=== PATIENT | female | born 1940 | race Caucasian/White ===

== ENCOUNTER 2016-10-23 11:21 | Inpatient (IN) ==
--- NOTE | 2016-10-23 12:12 | XRay Report ---
XR chest 1V portable Indication: Abdominal pain Comparison: 10 May 2011 Findings: The heart and mediastinum are normal in size and configuration. The pulmonary vascularity is normal in caliber. Lung volumes are increased with prominent bronchial markings. No lung infiltrates, effusions, pneumothorax or other abnormality is demonstrated. Impression: Chronic lung changes. No acute process or significant change. PROCEDURE INTERPRETED AT [facility] DEPARTMENT OF RADIOLOGY Final Report Signed by: Dr. Brice He
[2016-10-23 12:23] LABS: Basophils % 0.4 % (0.0-0.8); Eosinophils # 0.1 10*3/uL (0.0-0.87); Eosinophils % 0.7 % (0.00-10.9); Hematocrit 41.3 VOL% (35.7-47.0); Hemoglobin 14.2 GM/DL (12.0-16.0); Immature Granulocytes % 0.5 %; Immature Granulocytes Absolute 0.05 #; Lymphocytes # 1.4 10*3/uL (1.4-4.0); Lymphocytes % 14.6 % (21.3-54.2); Mean Corpuscular HGB Conc 34.4 GM/DL (32-36); Mean Corpuscular Hemoglobin 31 PG (27-34); Mean Platelet Volume 10.7 FL (9.6-12.0); Monocytes # 0.5 10*3/uL (0.11-0.8); Monocytes % 4.7 % (1.7-12.7); Neutrophils # 7.6 10*3/uL (1.4-7.4); Neutrophils % 79.1 % (38.7-73.9); Platelet Count 201 T/CUMM (130-400); Red Blood Count 4.54 MC/CUMM (3.8-5.5); Red Cell Distribution Width 12.4 % (9.3-17.3); White Blood Count 9.6 T/CUMM (4-12)
[2016-10-23 12:30] LABS: Apearance,Urine CLEAR (Clear); Bilirubin,Urine Negative (Negative); Blood, Urine Small mg/dL (Negative); Glucose,Urine (UA) Negative (Negative); Ketones,Urine 5 mg/dL (Negative); Mucus,Urine Occasional /LPF (Occasional); Nitrite,Urine Negative (Negative); Protein,Urine Negative; RBC,Urine <1 /HPF (0-4); Squamous Epithelial Cell,Urine Occasional /HPF (0-10); Urine Color Yellow (Yellow); Urine Specific Gravity 1.013 (1.001-1.035); Urine Urobilinogen < 2.0 EU/DL (0.2-1.0); WBC,Urine 1 /HPF (0-6)
--- NOTE | 2016-10-23 12:42 | CT Report ---
CT abdomen pelvis Indication: Abdominal pain Comparison: None available Technique: Axial CT imaging of the abdomen and pelvis is performed without contrast. Findings: Large amount of calcification is seen in the area of the mitral valve. CT abdomen: Spleen has multiple calcified granulomas present. The liver pancreas and adrenal glands are normal in size and density. No evidence of focal lesion is demonstrated in these solid organs. Kidneys are normal in size and density. No evidence of hydronephrosis or nephrolithiasis is seen. Small thickening of the colon with numerous diverticula are present. There is low density submucosa more prominent in the descending and transverse colon. Few subcentimeter lymph nodes are present in the right lower quadrant mesentery. No abnormal stranding is identified. Remaining bowel caliber is normal and no wall thickening or adjacent inflammatory change is seen. No evidence of free fluid or free air is present. Appendix appears normal. CT pelvis: Multiple diverticula are present in the sigmoid colon without evidence of diverticulitis. Bladder appear within normal limits. The pelvic organs show no evidence of abnormality Impression: Colonic wall thickening with low-density submucosa most prevalent in the ascending and transverse colon, could indicate inflammatory colitis. Multiple diverticula are present in the colon without evidence of diverticulitis. No other acute findings. This CT exam was performed using one or more the following dose reduction techniques: Automated exposure control, adjustment of the MA and/or KV according to patient size, or use of iterative reconstruction technique. PROCEDURE INTERPRETED AT [facility] DEPARTMENT OF RADIOLOGY Final Report Signed by: Dr. Brice He
[2016-10-23 12:47] LABS: Albumin 3.3 G/DL (3.4-5.0); Bilirubin,Total 0.6 MG/DL (0.2-1.0); Calcium 8.8 MG/DL (8.5-10.1); Magnesium 2.2 MG/DL (1.8-2.4); Potassium 3.5 MMOL/L (3.5-5.1); Total Protein 7.2 G/DL (6.4-8.3)
--- NOTE | 2016-10-23 13:05 | Emergency Department Note ---
Lakeshia Parrish Gwan, am scribing for, and in the presence of, Filippo De La Cruz MD 11:44. Dorothy Parrish Phillip K, MD, personally performed the services described in this documentation, ascribed by Chilango Asher in my presence, and it is both accurate and complete . Arrival - Arrival Chief Complaint: Weakness Stated Complaint: weakness ED Nursing Triage Note: Brought in per EMS from home with c/o generalized weakness onset last pm. Reports went to sit in wheelchair and slid onto floor, was unable to get up by herself. Denies pain. Denies urinary problems. Mode of Arrival: Stretcher Limitations: No Limitations Source: Patient, Old Records Reviewed, RN Notes Reviewed - History of Present Illness HPI Narrative: Patient is a 76 y/o white female who presents to the ED via EMS with a c/o generalized weakness with an onset last night. Patient stated that she went to sit in her in her wheelchair and slid onto the floor. Due to her weakness, the patient stated that she was unable to get herself up and was on the floor for 4 hours. She denies any urinary sxs or any hx of kidney infection. She confirmed that she lives alone and that she has a medical alert bracelet. No other problems/complaints reported in ED. Onset (ago): hour(s) Consistency: constant Severity: moderate Date of Last Menstrual Period: PM Allergies/Adverse Reactions: Allergies Allergy/AdvReac Type Severity Reaction Status Date / Time No Known Allergies Allergy Verified 10/23/16 11:29 Home Medications: Home Medications Medication Instructions Recorded Confirmed Type Atorvastatin [Lipitor] 40 mg PO DAILY 10/23/16 10/23/16 History Clopidogrel Bisulfate [Clopidogrel] 75 mg PO DAILY 10/23/16 10/23/16 History Insulin Detemir [Levemir FlexPen] 20 units SUBCUT QPM 10/23/16 10/23/16 History Metformin HCl [Metformin HCl ER] 500 mg PO DAILY W/SUPPER 10/23/16 10/23/16 History Valsartan [Valsartan] 160 mg PO DAILY 10/23/16 10/23/16 History glipiZIDE [Glipizide] 10 mg PO DAILY 10/23/16 10/23/16 History hydroCHLOROthiazide 12.5 mg PO DAILY 10/23/16 10/23/16 History [Hydrochlorothiazide] Review of System - Review of System 12 point system: reviewed and no additional remarkable complaints except as stated - Review of System Constitutional: Absent: chills, diaphoresis Eyes: Absent: discharge, pain Head/Ears/Nose/Throat: Absent: earache, epistaxis Respiratory: Absent: cough, wheezing Cardiovascular: Absent: chest pain, palpitations Neurological: Present: as per HPI, weakness. Absent: numbness, confusion Medical,Surgical,& Family Hx - Medical History Cardio: History of: Hypertension Endocrine: History of: Diabetes Mellitus (IDDM) - Social History Smoking Status: Never smoker Frequency of Alcohol Use: None Type of Drug Use: None Exam Vital Signs: Vital Signs Temperature 98.5 F 10/23/16 11:21 Pulse Rate 80 10/23/16 11:21 Respiratory Rate 20 10/23/16 11:21 Blood Pressure 113/68 10/23/16 11:21 O2 Sat by Pulse Oximetry 98 10/23/16 11:21 - General General appearance: alert, in no apparent distress - Head Head exam: Present: atraumatic, normocephalic - Eye Eye exam: Present: normal appearance, PERRL, EOMI - ENT ENT exam: Present: normal oropharynx, mucous membranes moist, TM's normal bilaterally - Neck Neck exam: Present: full ROM, trachea midline. Absent: tenderness - Chest Chest inspection: Present: symmetric chest wall rise. Absent: tenderness - Respiratory Respiratory exam: Present: normal lung sounds bilaterally. Absent: respiratory distress - Cardiovascular Cardiovascular exam: Present: regular rate, normal heart sounds. Absent: murmur - Abdominal Exam Abdominal exam: Present: soft, tenderness (Tenderness to palpation in both lower quadrants) - Extremities Exam Extremities exam: Present: full ROM (Patient is able to move all extremities but appears to be very weak) - Back Exam Back exam: Present: CVA tenderness (R), CVA tenderness (L) - Neurological Exam Neurological exam: Present: alert, oriented X3, CN II-XII intact. Absent: motor sensory deficit - Psychiatric Psychiatric exam: Present: normal affect, normal mood - Skin Skin exam: Present: warm, dry, intact, normal color Results - Labs CBC & BMP: 10/23/16 12:14 10/23/16 12:14 Lab Results: I have reviewed the patients labs Labs: Laboratory Tests 10/23/16 10/23/16 12:14 12:14 WBC 9.6 RBC 4.54 Hgb 14.2 Hct 41.3 Plt Count 201 Neut % (Auto) 79.1 H Lymph % (Auto) 14.6 L Neut # (Auto) 7.6 H Urine pH 5.0 Ur Specific [place] 1.013 Urine Ketones 5 Urine Blood Small Urine Urobilinogen < 2.0 H Urine RBC <1 Urine WBC 1 - Diagnostic Findings Procedure: Chest x-ray: report reviewed by me (Chronic lung changes. No acute process or significant change. ), CT Abdomen and Pelvis: report reviewed by me ( Colonic wall thickening with low-density submucosa most prevalent in the ascending and transverse colon, could indicate inflammatory colitis. Multiple diverticula are present in the colon without evidence of diverticulitis. No other acute findings.) Disposition Clinical Impression: Generalized weakness Case discussed with: patient, patient's family Disposition: Disch To Home/Self Care Condition: Stable Additional Instructions: Continue present medications.
--- NOTE | 2016-10-23 13:23 | Family Practice History&Phys ---
Assessment and Plan (1) Recurrent falls Status: Acute Assessment and plan: 09/23/2016: Patient be admitted to my services. CT brain we order I am going to x-ray her left knee. Physical therapy will be consulted. Current Visit: Yes History of Present Illness Chief complaint: Recurring falls History of present illness: Ms. Muro is a 76 year old female Patient is an 76-year-old white female who fell twice last night and then again this morning. Patient states she was trying to sit in the chair after getting up and going to the restroom in the chair slid causing her to fall to the floor. She does not know exactly why she fell but she does remember the impact and does not recall any palpitations or chest pain prior to her fall. Patient states she is weak in both her lower extremities. She denies any lateralizing weakness, vision or voice changes. She has not had any fever or chills. She apparently has had a little bit of diarrhea as well. She denies any urinary symptoms. Home Medications Medication Instructions Recorded Confirmed Type Atorvastatin [Lipitor] 40 mg PO DAILY 10/23/16 10/23/16 History Clopidogrel Bisulfate [Clopidogrel] 75 mg PO DAILY 10/23/16 10/23/16 History Insulin Detemir [Levemir FlexPen] 20 units SUBCUT QPM 10/23/16 10/23/16 History Metformin HCl [Metformin HCl ER] 500 mg PO DAILY W/SUPPER 10/23/16 10/23/16 History Valsartan [Valsartan] 160 mg PO DAILY 10/23/16 10/23/16 History glipiZIDE [Glipizide] 10 mg PO DAILY 10/23/16 10/23/16 History hydroCHLOROthiazide 12.5 mg PO DAILY 10/23/16 10/23/16 History [Hydrochlorothiazide] Allergies Allergy/AdvReac Type Severity Reaction Status Date / Time No Known Allergies Allergy Verified 10/23/16 11:29 - Constitutional Constitutional: Present: fatigue, weakness. Absent: chills, fever(s) - EENT Eyes: Absent: blurry vision, loss of vision Ears: Absent: decreased hearing, ear pain Nose, mouth and throat: Absent: hoarseness, sinus pressure, sore throat - Cardiovascular Cardiovascular: Absent: chest pain at rest, chest pain with activity, orthopnea , palpitations, PND - Respiratory Respiratory: Absent: cough, dyspnea, wheezing - Gastrointestinal Gastrointestinal: Present: diarrhea. Absent: abdominal pain, bloating, hematochezia, melena, nausea, vomiting - Genitourinary Genitourinary: Absent: dysuria, flank pain, hematuria, urinary hesitancy - Musculoskeletal Musculoskeletal: Present: arthralgias (Left knee pain), back pain, joint swelling (Left knee) - Neurological Neurological: Absent: convulsions, focal weakness, numbness, paresthesias - Psychiatric Psychiatric: Absent: anxiety, confusion - Endocrine Endocrine: Absent: fatigue, polydipsia, polyphagia - Hematologic/Lymphatic Hematologic/Lymphatic: Absent: easy bleeding, easy bruising Medical,Surgical,& Family Hx - Medical History Cardio: History of: Hypertension Endocrine: History of: Diabetes Mellitus (IDDM) - Surgical History Surgical History: noncontributory - Family History Family History: noncontributory - Social History Smoking Status: Never smoker Frequency of Alcohol Use: None Type of Drug Use: None Exam - Constitutional Vitals: Period Temp Pulse Resp BP Sys/Perez Pulse Ox Last 24 Hr 98.5 F 80 20 113/68 98 Exam: General: Objective patient is a well-developed white female in no acute distress. Patient is able give a good history. HEENT: Pupils equal and reactive to light. Patent nares and airway Neck: No meningismus, adenopathy, thyromegaly. There are no auscultated carotid bruits. Cardiovascular: Regular rhythm. No murmurs or gallops Chest: Clear to auscultation without rales rhonchi wheezes. Abdomen: Soft nontender to palpation No masses, rebound, guarding or tenderness. Neuro: Cranial nerves intact and DTRs and strength symmetric in all extremities. She is diffusely weak in both lower extremities. Dermatologic: No evidence of abnormal lesions or masses. Musculoskeletal: There is swelling and tenderness of the left knee. There is no deformity Extremities: There is no calf tenderness or swelling. Results - Labs CBC & BMP: 10/23/16 12:14 10/23/16 12:14 Lab Results: I have reviewed the past 24 hour labs - Diagnostic Findings Procedure: CT Abdomen and Pelvis: report reviewed by me (Colitis changes are evident)
[2016-10-23] MEDS ORDERED: MORPHINE 2 MG/1 ML SYRINGE IV PRN (13:26)
[2016-10-23] MEDS ORDERED: DEXTROSE 50% 25 GM/50 ML VIAL IV PRN (13:26)
[2016-10-23] MEDS ORDERED: ONDANSETRON 4 MG/2 ML VIAL IV PRN (13:26)
[2016-10-23] MEDS ORDERED: ACETAMINOPHEN 325 MG TABLET PO PRN (13:26)
[2016-10-23] MEDS ORDERED: GLUCAGON 1 MG VIAL IM PRN (13:26)
[2016-10-23] MEDS ORDERED: ENOXAPARIN 30 MG/0.3 ML SYRINGE SUBCUT SCH (14:00)
--- NOTE | 2016-10-23 14:09 | CT Report ---
CT brain Indication: Headache Comparison: None available Technique: Axial CT imaging of the brain is performed without contrast with 3 mm increments. Findings: No evidence of hemorrhage, mass mass effect midline shift or acute infarct seen. There is moderate diffuse cerebral atrophy. There are areas of decreased density seen within the white matter. Otherwise the brain parenchyma attenuation and differentiation appears within normal limits. The ventricles and cisterns are normal in caliber. No cranial or skull base abnormality is identified. Impression: No evidence of acute process or interval change. This CT exam was performed using one or more the following dose reduction techniques: Automated exposure control, adjustment of the MA and/or KV according to patient size, or use of iterative reconstruction technique. PROCEDURE INTERPRETED AT [facility] DEPARTMENT OF RADIOLOGY Final Report Signed by: Dr. Brice He
--- NOTE | 2016-10-23 14:10 | XRay Report ---
XR knee 3V LT Indication: Pain after falling injury Comparison: None available Findings: No evidence of fracture seen. The alignment of the joints appears normal. There is moderate medial compartment and mild remaining compartment degenerative change is present. No soft tissue abnormality is seen. Impression: No evidence of acute injury demonstrated. PROCEDURE INTERPRETED AT [facility] DEPARTMENT OF RADIOLOGY Final Report Signed by: Dr. Brice He
[2016-10-23] MEDS ORDERED: ENOXAPARIN 30 MG/0.3 ML SYRINGE ONE (14:51)
[2016-10-23] MEDS ORDERED: INSULIN LISPRO 100 UNIT/ML SUBCUT SCH (16:30)
[2016-10-23] MEDS: SODIUM CHLORIDE 0.45% 1,000 ML IV SCH (17:30)
[2016-10-23] MEDS: INSULIN GLARGINE 100 UNIT/ML SUBCUT SCH (20:58)
[2016-10-23] MEDS: DOCUSATE SODIUM 100 MG CAPSULE PO SCH (20:59)
--- NOTE | 2016-10-24 07:22 | Family Practice Progress Note ---
Family Practice - PN: Subj Interval history: Patient states she had a good night and has not had any increase in her chest pain. She denies any shortness of breath this morning. She is not having any chest pain or palpitations either. Physical therapy did not see her yesterday apparently. Patient CT brain was unremarkable and x-rays of the left knee reveal no evidence of fracture. Exam (Progress Note) - Constitutional Vitals: Period Temp Pulse Resp BP Sys/Perez Pulse Ox Last 24 Hr 98.2 F-99.8 F 71-97 16-20 103-150/46-71 97-98 Exam: Objective well-developed white female no acute distress. She is able answer questions appropriately. Cardiovascular heart rates regular without murmurs or gallops. Respiratory: Lungs clear to auscultation bilaterally. Abdomen: Abdomen soft and nontender to palpation. Neurology: Patient has symmetric strength in upper and lower extremities. Results - Labs CBC & BMP: 10/23/16 12:14 10/23/16 12:14 Lab Results: I have reviewed the past 24 hour labs Assessment and Plan (1) Recurrent falls Status: Acute Assessment and plan: 10/23/2016: Patient be admitted to my services. CT brain we order I am going to x-ray her left knee. Physical therapy will be consulted. 10/24/2016: Physical therapy to evaluate her. CT brain and x-rays left knee are unremarkable. Current Visit: Yes
[2016-10-24] MEDS: INSULIN LISPRO 100 UNIT/ML SUBCUT SCH ×4 (09:05→21:21)
[2016-10-24] MEDS: VALSARTAN 160 MG TABLET PO SCH (09:05)
[2016-10-24] MEDS: hydroCHLOROthiazide 12.5 MG CAPSULE PO SCH (09:05)
[2016-10-24] MEDS: ATORVASTATIN 40 MG TABLET PO SCH (09:05)
[2016-10-24] MEDS: PANTOPRAZOLE 40 MG TABLET PO SCH (09:05)
[2016-10-24] MEDS: CLOPIDOGREL 75 MG TABLET PO SCH (09:05)
[2016-10-24] MEDS: DOCUSATE SODIUM 100 MG CAPSULE PO SCH ×2 (09:05→21:21)
[2016-10-24] MEDS: glipiZIDE 10 MG TABLET PO SCH (09:05)
[2016-10-24] MEDS: ENOXAPARIN 40 MG/0.4 ML SYRINGE SUBCUT SCH (14:08)
[2016-10-24] MEDS: INSULIN GLARGINE 100 UNIT/ML SUBCUT SCH (21:20)
--- NOTE | 2016-10-25 07:40 | Family Practice Progress Note ---
Family Practice - PN: Subj Interval history: Patient states she had a good night her appetite has been adequate. Patient states she has not been out of bed since she has gotten here in physical therapy did not come by yesterday according to her memory. States still having pain in her left knee. She is able to make it to the restroom with assistance. Will go ahead and consult case management today for possible swing bed placement in [place] if a bed is available. Exam (Progress Note) - Constitutional Vitals: Period Temp Pulse Resp BP Sys/Perez Pulse Ox Last 24 Hr 96.1 F-98.1 F 70-77 18-22 103-123/50-78 95-97 Exam: Objective well-developed white female no acute distress. She is able answer questions appropriately. Cardiovascular heart rates regular without murmurs or gallops. Respiratory: Lungs clear to auscultation bilaterally. Abdomen: Abdomen soft and nontender to palpation. Neurology: Patient has symmetric strength in upper and lower extremities. Results - Labs CBC & BMP: 10/23/16 12:14 10/23/16 12:14 Lab Results: I have reviewed the past 24 hour labs Assessment and Plan (1) Recurrent falls Status: Acute Assessment and plan: 10/23/2016: Patient be admitted to my services. CT brain we order I am going to x-ray her left knee. Physical therapy will be consulted. 10/24/2016: Physical therapy to evaluate her. CT brain and x-rays left knee are unremarkable. 10/25/2016: Physical therapy to evaluate and I think she probably needs to go to swing bed. Case management will be consult Current Visit: Yes
[2016-10-25] MEDS ORDERED: DEXTROSE 50% 25 GM/50 ML SYRINGE IV PRN (07:49)
[2016-10-25] MEDS: INSULIN LISPRO 100 UNIT/ML SUBCUT SCH ×4 (10:31→20:57)
[2016-10-25] MEDS: DOCUSATE SODIUM 100 MG CAPSULE PO SCH ×2 (10:32→20:56)
[2016-10-25] MEDS: hydroCHLOROthiazide 12.5 MG CAPSULE PO SCH (10:33)
[2016-10-25] MEDS: VALSARTAN 160 MG TABLET PO SCH (10:33)
[2016-10-25] MEDS: glipiZIDE 10 MG TABLET PO SCH (10:33)
[2016-10-25] MEDS: ATORVASTATIN 40 MG TABLET PO SCH (10:33)
[2016-10-25] MEDS: ENOXAPARIN 40 MG/0.4 ML SYRINGE SUBCUT SCH (10:34)
[2016-10-25] MEDS: PANTOPRAZOLE 40 MG TABLET PO SCH (10:34)
[2016-10-25] MEDS: CLOPIDOGREL 75 MG TABLET PO SCH (10:34)
[2016-10-25] MEDS: SODIUM CHLORIDE 0.45% 1,000 ML IV SCH (10:38)
[2016-10-25] MEDS ORDERED: TUBERCULIN SKIN TEST 0.1 ML SYRINGE INTRADERM ONE (12:00)
[2016-10-25] MEDS: INSULIN GLARGINE 100 UNIT/ML SUBCUT SCH (20:56)
--- NOTE | 2016-10-26 07:17 | Family Practice Progress Note ---
Family Practice - PN: Subj Interval history: Patient states he had a good night's feeling some better. Her knee pain is improved and she is not having any headaches. Physical therapy came by briefly yesterday and she did get up in the chair. They are trying to find her a swing bed at [facility]. Exam (Progress Note) - Constitutional Vitals: Period Temp Pulse Resp BP Sys/Perez Pulse Ox Last 24 Hr 96.7 F-98.7 F 65-92 18-22 106-141/50-77 95-99 Exam: Objective well-developed white female no acute distress. She is able answer questions appropriately. Cardiovascular heart rates regular without murmurs or gallops. Respiratory: Lungs clear to auscultation bilaterally. Abdomen: Abdomen soft and nontender to palpation. Neurology: Patient has symmetric strength in upper and lower extremities. Results - Labs CBC & BMP: 10/23/16 12:14 10/23/16 12:14 Lab Results: I have reviewed the past 24 hour labs Assessment and Plan (1) Recurrent falls Status: Acute Assessment and plan: 10/23/2016: Patient be admitted to my services. CT brain we order I am going to x-ray her left knee. Physical therapy will be consulted. 10/24/2016: Physical therapy to evaluate her. CT brain and x-rays left knee are unremarkable. 10/25/2016: Physical therapy to evaluate and I think she probably needs to go to swing bed. Case management will be consult 10/26/2016: Patient is doing well and were trying to find her swing bed. Current Visit: Yes
[2016-10-26] MEDS: SODIUM CHLORIDE 0.45% 1,000 ML IV SCH (08:49)
[2016-10-26] MEDS: INSULIN LISPRO 100 UNIT/ML SUBCUT SCH ×4 (08:50→21:18)
[2016-10-26] MEDS: glipiZIDE 10 MG TABLET PO SCH (08:51)
[2016-10-26] MEDS: DOCUSATE SODIUM 100 MG CAPSULE PO SCH ×2 (08:51→21:18)
[2016-10-26] MEDS: VALSARTAN 160 MG TABLET PO SCH (08:51)
[2016-10-26] MEDS: ENOXAPARIN 40 MG/0.4 ML SYRINGE SUBCUT SCH (08:52)
[2016-10-26] MEDS: CLOPIDOGREL 75 MG TABLET PO SCH (08:52)
[2016-10-26] MEDS: ATORVASTATIN 40 MG TABLET PO SCH (08:52)
[2016-10-26] MEDS: hydroCHLOROthiazide 12.5 MG CAPSULE PO SCH (08:52)
[2016-10-26] MEDS: PANTOPRAZOLE 40 MG TABLET PO SCH (08:53)
[2016-10-26] MEDS: INSULIN GLARGINE 100 UNIT/ML SUBCUT SCH (21:18)
--- NOTE | 2016-10-27 06:57 | Family Practice Progress Note ---
Family Practice - PN: Subj Interval history: Patient is doing well this morning states she is certainly feeling much better. Her knee is still quite sore. She states she is ready to go to swing bed when bed is available. Exam (Progress Note) - Constitutional Vitals: Period Temp Pulse Resp BP Sys/Perez Pulse Ox Last 24 Hr 97.1 F-98.4 F 72-91 18-20 100-162/50-80 95-99 Exam: Objective well-developed white female no acute distress. She is able answer questions appropriately. She appears to be feeling better. Cardiovascular heart rates regular without murmurs or gallops. Respiratory: Lungs clear to auscultation bilaterally. Abdomen: Abdomen soft and nontender to palpation. Neurology: Patient has symmetric strength in upper and lower extremities. Results - Labs CBC & BMP: 10/23/16 12:14 10/23/16 12:14 Lab Results: I have reviewed the past 24 hour labs Assessment and Plan (1) Recurrent falls Status: Acute Assessment and plan: 10/23/2016: Patient be admitted to my services. CT brain we order I am going to x-ray her left knee. Physical therapy will be consulted. 10/24/2016: Physical therapy to evaluate her. CT brain and x-rays left knee are unremarkable. 10/25/2016: Physical therapy to evaluate and I think she probably needs to go to swing bed. Case management will be consult 10/26/2016: Patient is doing well and were trying to find her swing bed. 10/27/2016: Patient is certainly improved. Current Visit: Yes
[2016-10-27] MEDS: INSULIN LISPRO 100 UNIT/ML SUBCUT SCH ×4 (09:12→21:15)
[2016-10-27] MEDS: DOCUSATE SODIUM 100 MG CAPSULE PO SCH ×2 (09:13→21:14)
[2016-10-27] MEDS: VALSARTAN 160 MG TABLET PO SCH (09:13)
[2016-10-27] MEDS: glipiZIDE 10 MG TABLET PO SCH (09:14)
[2016-10-27] MEDS: ATORVASTATIN 40 MG TABLET PO SCH (09:15)
[2016-10-27] MEDS: CLOPIDOGREL 75 MG TABLET PO SCH (09:15)
[2016-10-27] MEDS: PANTOPRAZOLE 40 MG TABLET PO SCH (09:16)
[2016-10-27] MEDS: hydroCHLOROthiazide 12.5 MG CAPSULE PO SCH (09:18)
[2016-10-27] MEDS: ENOXAPARIN 40 MG/0.4 ML SYRINGE SUBCUT SCH (09:19)
[2016-10-27] MEDS: INSULIN GLARGINE 100 UNIT/ML SUBCUT SCH (21:15)
--- NOTE | 2016-10-28 07:06 | Discharge Summary ---
Hospital Course - Hospital Course Hospital Course: Patient is a 76-year-old white female who was admitted to the emergency room after having repetitive falls. Patient states she did not know why she was falling and had no chest pain or palpitations prior to the episodes. Patient does remember the impact and had no confusion or disorientation at the time of falls. She also had some diarrhea and apparently had some abdominal pain when she presented to the emergency room. She had a CT scan of the abdomen which revealed no acute abnormality. A CT scan of the brain was obtained which did not show any acute abnormality and she also bruised her left knee and x-rays reveal no acute fracture. Patient was admitted my services. Physical therapy was consulted. I think patient needs some ongoing physical therapy to help reduce her fall risk and she was agreeable to this. She lives in the [facility] and wanted to go to [place] for her rehabilitation. Patient's vital signs remained stable during her hospitalization and she had no dysrhythmias on monitor. Diagnosis - Discharge Diagnosis (1) Recurrent falls Status: Acute Discharge Plan - Discharge Data Disposition: Disch/Xfer to Snf Condition at Discharge: Stable Discharge Diet: diabetic diet Activity: as per physical therapy Hygiene: no restrictions Weight Bearing at Discharge: partial weight bearing, other (With use of walker) Driving: no restrictions Contact your physician if you experience:: fever over 101 - Discharge Medications Continue hydroCHLOROthiazide [Hydrochlorothiazide] 12.5 mg PO DAILY glipiZIDE [Glipizide] 10 mg PO DAILY Clopidogrel Bisulfate [Clopidogrel] 75 mg PO DAILY Atorvastatin [Lipitor] 40 mg PO DAILY Valsartan 160 mg PO DAILY Metformin HCl [Metformin HCl ER] 500 mg PO DAILY W/SUPPER Insulin Detemir [Levemir FlexPen] 20 units SUBCUT QPM - Follow Up or Referral Follow Up: Jem Person MD [Physician] - 1 Month - Forms/Instructions Exam - Constitutional Vitals: Period Temp Pulse Resp BP Sys/Perez Pulse Ox Last 24 Hr 97.1 F-99.2 F 78-94 16-22 106-137/55-72 93-98 Exam: Objective well-developed white female no acute distress. She is able answer questions appropriately. She has returned to her normal sensorium. Cardiovascular heart rates regular without murmurs or gallops. Respiratory: Lungs clear to auscultation bilaterally. Abdomen: Abdomen soft and nontender to palpation. Neurology: Patient has symmetric strength in upper and lower extremities. Extremities: Patient has bruising to the left knee but no palpable effusion or instability. Discharge Results Labs on day of discharge: Labs from last 24 hours 10/27/16 10/27/16 10/27/16 21:14 15:36 11:09 POC Glucose 212 H 184 H 284 H 10/27/16 07:11 POC Glucose 193 H DS: Provider Date of admission: 10/23/16 13:26 Primary care physician: . No PCP Attending physician on admission: Jem Person MD Consults: 10/23/16 13:26 Consult to Case Mgmt/Social Srvs [CONS] Routine Reason for Case Mgmt/Social Srvs: Discharge Planning 10/24/16 23:18 Consult to Physical Therapy [CONS] Routine Reason for Physical Therapy: Evaluate and Treat 10/25/16 07:36 Consult to Case Mgmt/Social Srvs [CONS] Routine Reason for Case Mgmt/Social Srvs: Swingbed/SNF/[facility] Consult to Physical Therapy [CONS] Routine Reason for Physical Therapy: Crutch Training Ambulation Discharging clinician: Jem Person MD Expected date of discharge: 10/28/16
--- NOTE | 2016-10-28 08:50 | Case Mgmt Physician Query Form ---
TB Signs and Symptoms Screening ([place]) INSTRUCTIONS: To be completed annually on residents/staff with a significant Tuberculin Skin Test (TST) upon admission/hire or a prior significant TST. To be completed on all staff at hire. Please respond to each listed symptom with an (X) in either the "YES" or "NO" box. Do you currently have any of the following symptoms: YES NO ( ) (x ) A cough If yes, is it: ( ) Productive ( ) Non- productive ( ) (x ) Hemoptysis (spitting up blood) ( ) (x ) Chest pains ( ) (x ) Weight Loss ( ) (x ) Fever ( ) (x ) Night Sweats (x ) ( ) Weakness ( ) ( x) Loss of Appetite ( ) (x ) Difficulty Breathing If you answered YES" to any of the above questions, how long have symptoms been present? Comments: MARY
--- NOTE | 2016-10-28 08:53 | Case Mgmt Physician Query Form ---
TB Signs and Symptoms Screening ([place]) INSTRUCTIONS: To be completed annually on residents/staff with a significant Tuberculin Skin Test (TST) upon admission/hire or a prior significant TST. To be completed on all staff at hire. Please respond to each listed symptom with an (X) in either the "YES" or "NO" box. Do you currently have any of the following symptoms: YES NO ( ) (x ) A cough If yes, is it: ( ) Productive ( ) Non- productive ( ) (x ) Hemoptysis (spitting up blood) ( ) (x ) Chest pains ( ) (x ) Weight Loss ( ) (x ) Fever ( ) (x ) Night Sweats (x ) ( ) Weakness ( ) (x ) Loss of Appetite ( ) (x ) Difficulty Breathing If you answered YES" to any of the above questions, how long have symptoms been present? Comments: MARY
[2016-10-28] MEDS: hydroCHLOROthiazide 12.5 MG CAPSULE PO SCH (08:55)
[2016-10-28] MEDS: ATORVASTATIN 40 MG TABLET PO SCH (08:56)
[2016-10-28] MEDS: PANTOPRAZOLE 40 MG TABLET PO SCH (08:56)
[2016-10-28] MEDS: INSULIN LISPRO 100 UNIT/ML SUBCUT SCH ×2 (08:56→11:57)
[2016-10-28] MEDS: glipiZIDE 10 MG TABLET PO SCH (08:56)
[2016-10-28] MEDS: VALSARTAN 160 MG TABLET PO SCH (08:56)
[2016-10-28] MEDS: CLOPIDOGREL 75 MG TABLET PO SCH (08:56)
[2016-10-28] MEDS: DOCUSATE SODIUM 100 MG CAPSULE PO SCH (08:56)
[2016-10-28] MEDS: ENOXAPARIN 40 MG/0.4 ML SYRINGE SUBCUT SCH (09:25)
[2016-10-28 11:50] VITALS: BP 157/85
== END 2016-10-28 12:15 | DRG 93 ==
LOC: EDBD → EDUNIT# → N.ED 11:21 → N.EDINP 13:26 → N.2E 15:12
PROVIDERS: ADMIT Family Medicine; ATTEND Family Medicine

== ENCOUNTER 2019-09-08 10:28 | Observation (INO) ==
[2019-09-08] MEDS ORDERED: methylPREDNISolone SOD SUC 125 MG/2 ML VIAL IV STA (11:15)
[2019-09-08] MEDS ORDERED: FUROSEMIDE 40 MG/4 ML VIAL IV STA (11:15)
[2019-09-08] MEDS ORDERED: ALBUTEROL/IPRATROPIUM 3 ML NEB RESP TX STA (11:15)
[2019-09-08 12:17] LABS: Basophils % 0.5 % (0.0-0.8); Eosinophils # 0.2 10*3/uL (0.0-0.87); Eosinophils % 3.3 % (0.00-10.9); Hematocrit 40.7 VOL% (35.7-47.0); Hemoglobin 12.9 GM/DL (12.0-16.0); Immature Granulocytes % 0.3 %; Immature Granulocytes Absolute 0.02 #; Lymphocytes # 0.8 10*3/uL (1.4-4.0); Lymphocytes % 12.1 % (21.3-54.2); Mean Corpuscular HGB Conc 31.7 GM/DL (32-36); Mean Corpuscular Volume 92.7 FL (87-102); Mean Platelet Volume 10.2 FL (9.6-12.0); Monocytes % 10.7 % (1.7-12.7); Neutrophils % 73.1 % (38.7-73.9); Platelet Count 203 T/CUMM (130-400); Red Blood Count 4.39 MC/CUMM (3.8-5.5); Red Cell Distribution Width 13.1 % (9.3-17.3); White Blood Count 6.3 T/CUMM (4-12)
[2019-09-08 12:30] LABS: PT Patient Result 10.5 SECS (9.8-11.9); Partial Thromboplastin Time 27.7 SECS (23.9-33.8)
[2019-09-08 12:33] LABS: Troponin I < 0.015 NG/ML (0.00-0.045)
[2019-09-08 12:43] LABS: Albumin 3.4 G/DL (3.4-5.0); Bilirubin,Total 0.4 MG/DL (0.2-1.0); Calcium 8.5 MG/DL (8.5-10.1); Osmolality,Calculated 278.5 MOS/KG (273-304); Total Protein 6.6 G/DL (6.4-8.3)
[2019-09-08 14:16] LABS: Apearance,Urine CLEAR (Clear); Bilirubin,Urine Negative (Negative); Blood, Urine Small mg/dL (Negative); Glucose,Urine (UA) Negative (Negative); Ketones,Urine Negative (Negative); Nitrite,Urine Negative (Negative); Protein,Urine Negative; RBC,Urine 10 /HPF (0-4); Urine Color Colorless (Yellow); Urine Specific Gravity 1.004 (1.001-1.035); Urine Urobilinogen < 2.0 EU/DL (0.2-1.0); WBC,Urine <1 /HPF (0-6)
[2019-09-08] MEDS ORDERED: BISACODYL 5 MG TABLET PO PRN (15:39)
[2019-09-08] MEDS ORDERED: ACETAMINOPHEN 325 MG TABLET PO PRN (15:39)
[2019-09-08] MEDS ORDERED: ALUMINUM/MAGNES/SIMETH MAX STR 30 ML UDCUP PO PRN (15:39)
[2019-09-08] MEDS ORDERED: diphenhydrAMINE CAP 25 MG CAPSULE PO PRN (15:39)
[2019-09-08] MEDS ORDERED: GLUCAGON 1 MG VIAL IM PRN (15:39)
[2019-09-08] MEDS ORDERED: SIMETHICONE CHEW 125 MG TABLET PO PRN (15:39)
[2019-09-08] MEDS ORDERED: ONDANSETRON 4 MG/2 ML VIAL IV PRN (15:39)
[2019-09-08] MEDS ORDERED: DEXTROSE 50% 25 GM/50 ML VIAL IV PRN (15:39)
[2019-09-08] MEDS: INSULIN LISPRO 100 UNIT/ML SUBCUT SCH ×2 (18:13→22:29)
[2019-09-08] MEDS: SODIUM CHLORIDE 0.45% 1,000 ML IV SCH (18:30)
[2019-09-08] MEDS: ENOXAPARIN 40 MG/0.4 ML SYRINGE SUBCUT SCH (18:30)
[2019-09-09 07:01] LABS: Basophils % 0.2 % (0.0-0.8); Hemoglobin 13.3 GM/DL (12.0-16.0); Immature Granulocytes % 0.4 %; Immature Granulocytes Absolute 0.02 #; Lymphocytes % 18.1 % (21.3-54.2); Mean Corpuscular HGB Conc 31.7 GM/DL (32-36); Mean Corpuscular Volume 91.9 FL (87-102); Mean Platelet Volume 10.8 FL (9.6-12.0); Monocytes % 9.2 % (1.7-12.7); Neutrophils % 72.1 % (38.7-73.9); Platelet Count 224 T/CUMM (130-400); Red Blood Count 4.57 MC/CUMM (3.8-5.5); Red Cell Distribution Width 13.2 % (9.3-17.3); White Blood Count 5.4 T/CUMM (4-12)
[2019-09-09 07:21] LABS: Calcium 8.3 MG/DL (8.5-10.1); Osmolality,Calculated 280.1 MOS/KG (273-304)
[2019-09-09] MEDS: SODIUM CHLORIDE 0.45% 1,000 ML IV SCH ×3 (07:47→23:00)
[2019-09-09] MEDS: INSULIN LISPRO 100 UNIT/ML SUBCUT SCH ×4 (08:00→22:14)
[2019-09-09] MEDS ORDERED: BENZONATATE 100 MG CAPSULE PO PRN (16:18)
[2019-09-09] MEDS ORDERED: PEG PROPYLENE GLYCOL BOTH EYES PRN (16:18)
[2019-09-09] MEDS: ASPIRIN EC 81 MG TABLET PO SCH (17:05)
[2019-09-09] MEDS: ENOXAPARIN 40 MG/0.4 ML SYRINGE SUBCUT SCH (17:05)
[2019-09-09] MEDS ORDERED: ATORVASTATIN 20 MG TABLET PO SCH (21:00)
[2019-09-10 07:43] VITALS: BP 130/49
[2019-09-10] MEDS: ASPIRIN EC 81 MG TABLET PO SCH (08:51)
[2019-09-10] MEDS: INSULIN LISPRO 100 UNIT/ML SUBCUT SCH (08:51)
[2019-09-10] MEDS ORDERED: SERTRALINE 25 MG TABLET PO SCH (09:00)
[2019-09-10] MEDS ORDERED: MULTIVITAMIN (OCUVITE) TABLET PO SCH (09:00)
[2019-09-10] MEDS ORDERED: CLOPIDOGREL 75 MG TABLET PO SCH (09:00)
[2019-09-10] MEDS: SODIUM CHLORIDE 0.45% 1,000 ML IV SCH (10:14)
== END 2019-09-10 11:26 ==
LOC: EDBD → EDUNIT# → N.EDINP 10:28 → N.ED 10:28 → SUATTDRO 16:48 → N.3E 16:57
PROVIDERS: ADMIT Internal Medicine; ATTEND Internal Medicine

== ENCOUNTER 2021-07-23 11:14 | Observation (INO) ==
[2021-07-23 12:22] LABS: Basophils % 0.2 % (0.0-0.8); Eosinophils % 0.3 % (0.00-10.9); Hematocrit 39.8 VOL% (35.7-47.0); Hemoglobin 12.4 GM/DL (12.0-16.0); Immature Granulocytes % 0.8 %; Immature Granulocytes Absolute 0.08 #; Lymphocytes # 0.5 10*3/uL (1.4-4.0); Lymphocytes % 5.1 % (21.3-54.2); Mean Corpuscular HGB Conc 31.2 GM/DL (32-36); Mean Corpuscular Volume 96.6 FL (87-102); Mean Platelet Volume 10.4 FL (9.6-12.0); Monocytes # 0.3 10*3/uL (0.11-0.8); Monocytes % 3.5 % (1.7-12.7); Neutrophils % 90.1 % (38.7-73.9); Platelet Count 274 T/CUMM (130-400); Red Blood Count 4.12 MC/CUMM (3.8-5.5); Red Cell Distribution Width 14.1 % (9.3-17.3); White Blood Count 9.7 T/CUMM (4-12)
[2021-07-23 12:48] LABS: Bacteria,Urine Occasional /HPF (Few); Calcium Oxalate Crystals,Urine Few /HPF (Few); Hyaline Casts,Urine 9 /LPF (0-3); Mucus,Urine Few /LPF (Occasional); RBC,Urine 1 /HPF (0-4)
[2021-07-23 12:49] LABS: Glucose,Urine (UA) Negative (Negative); Protein,Urine 30 mg/dL (Negative); Urine Appearance Clear (Clear); Urine Color Yellow (Yellow); Urine Specific Gravity 1.025 (1.001-1.035)
[2021-07-23 12:50] LABS: Bilirubin,Urine Negative (Negative); Blood, Urine Negative (Negative); Ketones,Urine Negative (Negative); Nitrite,Urine Negative (Negative); Urine Urobilinogen < 2.0 eU/dL (<2.0)
[2021-07-23 12:50] LABS: Albumin 3.3 G/DL (3.4-5.0); Bilirubin,Total 0.6 MG/DL (0.20-1.00); Calcium 8.3 MG/DL (8.5-10.1); Potassium 3.5 MMOL/L (3.5-5.1); Total Protein 6.4 G/DL (6.4-8.2)
[2021-07-23] MEDS ORDERED: cefTRIAXone 1,000 MG in SODIUM CHLORIDE 0.9% 100 ML IV STA (13:12)
[2021-07-23] MEDS ORDERED: AZITHROMYCIN INJ 500 MG in SODIUM CHLORIDE 0.9% 250 ML IV STA (16:37)
[2021-07-23] MEDS ORDERED: ONDANSETRON 4 MG/2 ML VIAL IV PRN (18:02)
[2021-07-23] MEDS ORDERED: DEXTROSE 50% 25 GM/50 ML VIAL IV PRN (18:02)
[2021-07-23] MEDS ORDERED: DOCUSATE SODIUM 100 MG CAPSULE PO PRN (18:02)
[2021-07-23] MEDS ORDERED: hydrALAZINE 20 MG/1 ML VIAL IV PRN (18:02)
[2021-07-23] MEDS ORDERED: GLUCAGON 1 MG VIAL IM PRN (18:02)
[2021-07-23] MEDS ORDERED: ACETAMINOPHEN 325 MG TABLET PO PRN (18:02)
[2021-07-23] MEDS ORDERED: DEXTROSE 10% 250 ML BAG IV PRN (18:05)
[2021-07-23] MEDS ORDERED: ENOXAPARIN 40 MG/0.4 ML SYRINGE SUBCUT SCH (18:30)
[2021-07-23] MEDS: ALBUTEROL/IPRATROPIUM 3 ML NEB RESP TX SCH (19:45)
[2021-07-23] MEDS ORDERED: DONEPEZIL 10 MG TABLET PO SCH (21:00)
[2021-07-23] MEDS ORDERED: ATORVASTATIN 20 MG TABLET PO SCH (21:00)
[2021-07-23] MEDS: INSULIN LISPRO 100 UNIT/ML SUBCUT SCH (21:07)
[2021-07-24] MEDS: ALBUTEROL/IPRATROPIUM 3 ML NEB RESP TX SCH ×3 (01:00→14:00)
[2021-07-24 05:34] LABS: Basophils % 0.4 % (0.0-0.8); Eosinophils # 0.2 10*3/uL (0.0-0.87); Eosinophils % 2.3 % (0.00-10.9); Hematocrit 35.3 VOL% (35.7-47.0); Hemoglobin 11.2 GM/DL (12.0-16.0); Immature Granulocytes % 0.8 %; Immature Granulocytes Absolute 0.07 #; Lymphocytes # 1.2 10*3/uL (1.4-4.0); Lymphocytes % 14.5 % (21.3-54.2); Mean Corpuscular HGB Conc 31.7 GM/DL (32-36); Mean Platelet Volume 10.9 FL (9.6-12.0); Monocytes # 0.5 10*3/uL (0.11-0.8); Monocytes % 6.4 % (1.7-12.7); Neutrophils % 75.6 % (38.7-73.9); Platelet Count 281 T/CUMM (130-400); Red Blood Count 3.64 MC/CUMM (3.8-5.5); Red Cell Distribution Width 14.2 % (9.3-17.3); White Blood Count 8.4 T/CUMM (4-12)
[2021-07-24 06:03] LABS: Calcium 8.4 MG/DL (8.5-10.1); Osmolality,Calculated 288.1 MOS/KG (273-304); Potassium 3.6 MMOL/L (3.5-5.1); Risk Ratio 2.36; Thyroid Stimulating Hormone 2.9 uIU/ml (0.358-3.74); VLDL Cholesterol 17.4 MG/DL
[2021-07-24] MEDS ORDERED: ANASTROZOLE 1 MG TABLET PO SCH (09:00)
[2021-07-24] MEDS ORDERED: LOSARTAN 25 MG TABLET PO SCH (09:00)
[2021-07-24] MEDS ORDERED: BACILLUS COAGULANS CAPLET PO SCH (09:00)
[2021-07-24] MEDS ORDERED: PANTOPRAZOLE 40 MG TABLET PO SCH (09:00)
[2021-07-24] MEDS ORDERED: cefTRIAXone 1,000 MG in SODIUM CHLORIDE 0.9% 100 ML IV SCH (09:00)
[2021-07-24] MEDS ORDERED: ASPIRIN EC 81 MG TABLET PO SCH (09:00)
[2021-07-24] MEDS ORDERED: CLOPIDOGREL 75 MG TABLET PO SCH (09:00)
[2021-07-24] MEDS: INSULIN LISPRO 100 UNIT/ML SUBCUT SCH ×3 (09:39→15:38)
[2021-07-24] MEDS ORDERED: AZITHROMYCIN 250 MG TABLET PO SCH (13:00)
[2021-07-24] MEDS ORDERED: AZITHROMYCIN INJ 500 MG in SODIUM CHLORIDE 0.9% 250 ML IV SCH (15:00)
[2021-07-24 15:53] VITALS: BP 124/54
== END 2021-07-24 19:45 ==
LOC: N.EDINP 11:14 → N.ED 11:14 → N.5E 22:15
PROVIDERS: ADMIT Internal Medicine; ATTEND Internal Medicine